=== PATIENT | female | born 1980 | race Caucasian/White ===

== ENCOUNTER 2024-05-22 22:02 | Emergency (ER) | payer MEDICARE, OTHER ==
[~2024-05-22] VITALS: Ht 165.1 cm; Wt 68.0 kg
[~2024-05-22 22:02] MED LIST: NITR100CA PO
[2024-05-22 22:06] VITALS: BP 136/57
[2024-05-22] MEDS ORDERED: Robaxin750 MG PO (22:50)
== END 2024-05-22 22:51 | disposition home or self-care (01) ==
LOC: ER 22:02
DX: M26.602 Left temporomandibular joint disorder, unspecified (principal); Z91.040 Latex allergy status; Z79.01 Long term (current) use of anticoagulants
CPT/HCPCS: 99283